=== PATIENT | male | born 1985 | race Caucasian/White ===

== ENCOUNTER 2018-03-28 14:13 | Inpatient (IN) | payer BC, OTHER ==
[~2018-03-28] VITALS: Ht 170.2 cm; Wt 72.6 kg
--- NOTE | 2018-03-28 14:45 | NUR ---
PRE-ASSESSMENT: Pre-Assessment done at intake office, client is A/O x4, he presents with anxious mood, agitated, hyperverbal, restless, and flushed face. Client is wearing clean clothes, he appears nourished. Client avoids eye contact, T 97.9 , RR 18, HR 93, BP 149/88 spO2 @ 95% on RA, no pain. He is fully ambulatory. He denies any allergies; he denies any withdrawal-induced seizure, no withdrawal induced delirium, no withdrawal induced cardia complications, no hx of overdose or blackouts. PMH: Anxiety (2006), Depression (2009), athlete's foot (2018). Denies any past surgical hx. Client denies any suicidal/homicidal ideation at this time and reports no hx of of SI/HI or involuntary psych hospitalization (5150). Medications taken at home Omeprazole 20mg PO QD terbinafine 250mg Tab PO HS Cymbalta 30mg PO daily Prescribed Xanax 1mg PO daily Substance history "First time used at 17 y/o at social events, then little by little the amount of alcohol was increasing, for the last two months, client consumes Alcohol (vodka, whiskey, tequila) and 6 beer (12-oz cans) of [employer]." Last used the day of admission around 070 in the amount of 370mL of whiskey. "I was prescribed Xanax 1mg 11 years ago for my anxiety, I never take more than 1 mg and some weeks I only take it 5 days, because the alcohol helps me relax, so I don't need the Xanax on those days, but I take it either every day or minimum 5 x a week." Client repots taking Xanax 1 mg PO 03/25/18. Protocol regarding vitals Q4H, UDS, blood work, and controlled substances discuss with client, he verbalized understanding. PCP: Vickey Stover MD
--- NOTE | 2018-03-28 15:17 | NUR ---
Admissions Note 38 year old male admitted to [facility] for withdrawal from alcohol and prescribed Alprazolam. Client stated, "I am here for alcohol, either I stop drinking or I will because of it." Client is oriented to unit, educated about protocols and how to work TV and call light in his room. Weight: 160 pounds. Height: 5'7" Client appears anxious, strong alcohol breath. Bilateral lung clear on auscultation, abdomen soft, non-tender, no edema noted. Client presents with moderate intoxication. Client has steady gait. Client has NKDA, regular diet, full code ordered. He declines PNA vaccine, stating, "I am not going to get pneumonia" He gives verbal consent for HIV. Client states that he lives alone. Client describes symptoms when not consuming alcohol. "I can not function, I'm irritable, agitated, I get headaches, stomach cramps, shaking, colds, I feel like I'm going crazy." Client said, "I was going crazy last night, I was hitting my head on the wall, crying and screaming really loud, then I call my mom and she help me realize that I'm not the same person I was before and now I want to be the good, fun kaden who does not need alcohol to function." When asked what are his plans after completing detox, he stated, "I just want to go home, see a therapist and go on with my life." Client reports when asked abot his longest period of sobriety, "I am not sure I do that some times, but can never be sober for more than 2 days and it is hell."Client reports when asked about his treatment history, "This is my first admission and I hope is the last one in my life." client stated, "I have depression and can't handle it, plus I am pretty sad about losing my grandma two months ago and my brother 5 years ago, time does not help me heal, but alcohol helps some." Dr Cavazos notified of client's admission. UDS not collected yet. All safety measures instituted. Seizure precaution. Call light within reach. Will continue to monitor.
[2018-03-28] MEDS ORDERED: OMEP20CA10 PO (15:24)
[2018-03-28] MEDS ORDERED: TERB250T52 PO (15:25)
[2018-03-28] MEDS ORDERED: MAG HYDROX/AL HYDROX/SIMETH 30 ML LIQUID UDC PO PRN (15:45)
[2018-03-28] MEDS ORDERED: diphenhydrAMINE 50 MG CAPSULE PO PRN (15:45)
[2018-03-28] MEDS ORDERED: MAGNESIUM HYDROXIDE 30 ML LIQUID UDC PO PRN (15:45)
[2018-03-28] MEDS ORDERED: LORAZEPAM 1 MG TABLET PO PRN ×2 (15:45)
[2018-03-28] MEDS ORDERED: ONDANSETRON 4 MG/2 ML VIAL IM PRN (15:45)
[2018-03-28] MEDS ORDERED: MIRALAX 17 GM POWD.PACK PO PRN (15:45)
[2018-03-28] MEDS ORDERED: LOPERAMIDE HCL 2 MG CAPSULE PO PRN ×2 (15:45)
[2018-03-28] MEDS ORDERED: LORAZEPAM 2 MG/1 ML VIAL IM PRN (15:45)
[2018-03-28] MEDS ORDERED: THIAMINE HCL 200 MG/2 ML VIAL IM ONE (15:45)
[2018-03-28] MEDS ORDERED: ONDANSETRON HCL 4 MG TABLET PO PRN (15:45)
[2018-03-28 16:22] VITALS: BP 138/95
[2018-03-28] MEDS: IBUPROFEN 600 MG TABLET PO PRN ×2 (17:10→23:07)
[2018-03-28] MEDS: ACETAMINOPHEN 325 MG TABLET PO PRN (17:10)
[2018-03-28] MEDS: CLONIDINE HCL 0.1 MG TABLET PO PRN (17:10)
--- NOTE | 2018-03-28 17:10 | NUR ---
PRN Clonidine 0.1mg PO, Tylenol 650mg PO, Motrin 600mg PO for anxiety, agitation and LOJA 9/10. Call light within reach.
[2018-03-28 17:12] LABS: BASOPHILS % (AUTO) 0.5 % (0.0-2.0); EOSINOPHILS % (AUTO) 0.5 % (0.0-7.0); HEMATOCRIT 43.6 % (36.7-47.1); HEMOGLOBIN 14.5 g/dL (12.5-16.3); LYMPHOCYTES % (AUTO) 49.8 % (20.5-51.5); MEAN CORPUSCULAR HEMOGLOBIN 26.7 uug (23.8-33.4); MEAN CORPUSCULAR HGB CONC 33 g/dL (32.5-36.3); MONOCYTES # (AUTO) 0.3 K/uL (2.0-10.0); MONOCYTES % (AUTO) 6.9 % (0.0-11.0); NEUTROPHILS # (AUTO) 1.7 K/uL (1.8-8.9); NEUTROPHILS % (AUTO) 42.3 % (38.5-71.5); PLATELET COUNT (AUTO) 274 K/uL (152-348); RED BLOOD CELL COUNT(AUTO) 5.45 MIL/uL (4.06-5.63); WHITE BLOOD COUNT (AUTO) 3.9 K/uL (3.6-10.2)
[2018-03-28 17:27] LABS: BILIRUBIN,TOTAL 0.4 mg/dL (0.2-1.0); CREATININE 1.1 mg/dL (0.6-1.3); MAGNESIUM 1.7 mg/dL (1.8-2.4)
[2018-03-28 18:01] LABS: *AMPHETAMINE, URINE NEGATIVE (NEGATIVE); *BARBITURATE, URINE NEGATIVE (NEGATIVE); *CANNABINOID, URINE NEGATIVE (NEGATIVE); *COCCAINE, URINE NEGATIVE (NEGATIVE); *OPIATE, URINE NEGATIVE (NEGATIVE); *PHENCYCLIDINE SCREEN,URINE NEGATIVE (NEGATIVE)
--- NOTE | 2018-03-28 18:10 | NUR ---
Reassess PRN Clonidine 0.1mg, Tylenol 650mg, Motrin 600mg, client reports an increase in his anxiety and agitation and no relief from his LOJA 04/08. Call light within reach. CN notified.
--- NOTE | 2018-03-28 18:51 | NUR ---
PRN Zofran 4mg PO administered for nausea, no emesis. Call light within reach.
[2018-03-28] MEDS ORDERED: DIAZEPAM 10 MG TABLET PO PRN (19:00)
[2018-03-28] MEDS ORDERED: DIAZEPAM 5 MG TABLET PO PRN (19:00)
--- NOTE | 2018-03-28 19:29 | NUR ---
END OF SHIFT Endorse client to incoming nurse, client is in room, a/o x 4. Client is admitted to [facility] for alcohol withdrawal and prescribed alprazolam. Client states, "I can not take Ativan, I took one tab one day and I was going crazy, so no I will not take Ativan." MD notified. PRN medications administered and noted per protocol. PRN Zofran 4mg PO for nausea to be reassess by incoming nurse. Adequate PO fluid intake 2700 mL, void x 1. Call light within reach.
--- NOTE | 2018-03-28 19:30 | NUR ---
Start of shift note Received report from day shift nurse. Pt is a 33 yo male, A+Ox4, presenting to [facility] for medically supervised ETOH/Benzo withdrawal. Pt noted with anxiety, restlessness, agitation, and irritability. Pt has HX of depression and anxiety which will be monitored during shift. Pt is on PRN Valium until further evaluation from MD. Respirations even and unlabored. Will continue to monitor.
--- NOTE | 2018-03-28 19:36 | NUR ---
PRN Valium 5mg Pt noted with CIWA: 8. Pt noted with fine tremors, anxiety, agitation, sweat on brow, and headache. Pt given PRN Valium 5mg and tolerated well. Will reassess within 1 HR. Will continue to monitor.
[2018-03-28 20:12] VITALS: BP 130/91
--- NOTE | 2018-03-28 20:12 | NUR ---
PRN Valium 5mg Reassessment and CIWA Assessment Medication effective. Pt expresses a reduction of anxiety but an increase in headache to 6/10. Pt advised that he received a dose of Motrin 600mg @1700 and pt stated that he would wait a little longer before taking any additional medication for headache. No s/s of ASE noted at this time. CIWA: 12. Pt noted with fine tremors, sweat on brow, anxiety, agitation, and headache. Respirations even and unlabored. Will continue to monitor.
[2018-03-28] MEDS ORDERED: MAGNESIUM OXIDE 400 MG TABLET PO ONE (21:00)
[2018-03-28] MEDS ORDERED: PANTOPRAZOLE SODIUM 40 MG TABLET.DR PO SCH ×2 (22:30→22:42)
[2018-03-28] MEDS: DIAZEPAM 10 MG TABLET PO PRN (22:30)
--- NOTE | 2018-03-28 22:30 | NUR ---
PRN Benadryl and Valium 10mg Pt noted with CIWA: 12 and c/o inability to sleep. Pt noted with fine tremors, anxiety, agitation, sweat on brow, and headache. PRN Benadryl and Valium 10mg given and tolerated well. Will reassess within 1 HR. Will continue to monitor.
[2018-03-28] MEDS ORDERED: PANTOPRAZOLE SODIUM 40 MG TABLET.DR PO ONE (23:00)
--- NOTE | 2018-03-28 23:07 | NUR ---
PRN Motrin Pt c/o headache 03/08 and requested for PRN Motrin. Medication given and tolerated well. Will reassess within 1 HR. Will continue to monitor.
--- NOTE | 2018-03-28 23:20 | NUR ---
PRN Benadryl and Valium 10mg Reassessment Medications effective. Pt expresses reduction of anxiety. Pt is resting well in bed. No s/s of ASE noted at this time. CIWA: 9. Pt noted with sweat on brow, fine tremors, anxiety, headache, and agitation. Respirations even and unlabored. Will continue to monitor.
--- NOTE | 2018-03-28 23:55 | NUR ---
PRN Motrin Reassessment Medication effective. Pt expresses reduction in headache to 5/10. No s/s of ASE noted at this time. Respirations even and unlabored. Will continue to monitor.
[2018-03-29 00:28] VITALS: BP 124/84
[2018-03-29 04:01] VITALS: BP 127/96
[2018-03-29] MEDS: DIAZEPAM 10 MG TABLET PO PRN (04:03)
--- NOTE | 2018-03-29 04:03 | NUR ---
CIWA Assessment and PRN Valium 10mg CIWA: 11. Pt noted with anxiety, agitation, fine tremors, sweat on brow, and headache. PRN Valium 10mg given and tolerated well. Will reassess within 1 HR. Will continue to monitor.
--- NOTE | 2018-03-29 04:32 | NUR ---
PRN Valium 10mg Reassessment Medication effective. Pt expresses reduction of anxiety. CIWA: 8. Pt noted with sweat on brow, anxiety, agitation, fine tremors, and mild headache. Respirations even and unlabored. Will continue to monitor.
--- NOTE | 2018-03-29 06:59 | NUR ---
End of shift note Pt was continuously noted with restlessness, anxiety, headache, and agitation. Pt remained in room for majority of shift except to get food from kitchen. Pt remained cooperative and compliant with all aspects of treatment. Pt was given PRN Valium 5mg @1936, PRN Benadryl and Valium 10mg @2230, PRN Motrin @2307, and PRN Valium 10mg @0401. Pt is on PRN Valium until further evaluation from MD, tolerated well. Pt slept for a total of 7 HRS. Last CIWA: 8 @0450. Respirations even and unlabored. Will endorse to day shift nurse.
--- NOTE | 2018-03-29 07:09 | NUR ---
WA 16 Client is in bed, he continues to present with anxiety, agitation, irritability, flushed face, nausea, abdominal, clammy skin, tremors, and difficulty concentrating noted. Client reports nausea, stomach cramps, sweats, chills, and fatigue. Valium 10mg PO administered. Encourage client to increase PO fluid intake as tolerated to facilitate detox. Call light within reach. Addendum: 03/29/18 at 1721 by POPEYE NEGRETE RN wrong time, should be [id number]
--- NOTE | 2018-03-29 07:30 | NUR ---
START OF SHIFT Endorse rcvd from ongoing nurse, client is in his room, pacing, he said, "I feel like, I'm going crazy, can you just give me more Valium so I can go to sleep."Client made aware of PRN Valium Q4H, he received a Valium 10mg dose @ 0403. offered other PRN medications for anxiety, but client refused. T 98, RR 18, P 77, BP 132/89, spO2 @ 99% pain 0/10. Last CIWA 8 @ 0450. PRN Valium 5mg PO, Valium 10mg PO @ 1030, 0403, Motrin 600mg PO for LOJA, Benadryl 50mg PO for insomnia, client slept 7 hrs. Seizure precautions in place. Bed in lowest/locked position. Call light within reach.
[2018-03-29 08:11] VITALS: BP 143/101
[2018-03-29] MEDS: FOLIC ACID 1 MG TABLET PO SCH (08:14)
[2018-03-29] MEDS: THIAMINE HCL 100 MG TABLET PO SCH (08:14)
[2018-03-29] MEDS: MULTIVITAMINS,THERAPEUTIC TABLET PO SCH (08:14)
--- NOTE | 2018-03-29 08:15 | NUR ---
PPD Test administered on L forearm.
--- NOTE | 2018-03-29 08:15 | NUR ---
CIWA 23 & PRN Valium 20mg PO Client appears disheveled, dark [place] under eyes, presents with anxiety, irritability, skin moist, flushed face, gross tremors, congested nose, watery eyes, emotional volatility, increased BP 143/101, and difficult concentrating. Client reports nausea, stomach cramps, sweats, a sense of panic, and fatigue. Client is almost in tears and states, "I don't know how I'm going to do this I'm freaking out, I just want to get out of here and drink something." PRN Valium 20mg PO administered. Encourage client to verbalized feelings of despair, support offered. Encourage client to increase PO fluid as tolerated to facilitate detox. Call light within reach.
[2018-03-29] MEDS ORDERED: TUBERCULIN,PURIF.PROT.DERIV. 5 TU/0.1 ML TEST ID ONE (09:00)
--- NOTE | 2018-03-29 09:15 | NUR ---
Reassess PRN Valium 20mg, client reports feeling less anxious, but still has that feeling of hypervigilance, like he has constantly monitor people around him, nausea decreased a little, he has poor appetite, gross tremors, sweats, restless legs, and difficulty concentrating. Client is a/o to name, place, time, and situation. CIWA 16. Call light within reach.
[2018-03-29] MEDS ORDERED: 5 DAY TAPER VALIUM-SERENITY PROTOCOL PO PRN (11:30)
[2018-03-29 12:45] VITALS: BP 134/99
[2018-03-29] MEDS: CLONIDINE HCL 0.1 MG TABLET PO PRN ×2 (12:45→21:20)
[2018-03-29] MEDS: DIAZEPAM 10 MG TABLET PO SCH ×3 (12:45→21:20)
[2018-03-29] MEDS: IBUPROFEN 600 MG TABLET PO PRN ×2 (12:45→20:00)
--- NOTE | 2018-03-29 12:45 | NUR ---
CIWA 19 & PRN Clonidine 0.1mg PO administered for anxiety, agitation. Client is pacing in his room, continuously running hands over his face and hair, he reports LOJA 5/10 frontal area & throbbing, he reports no appetite, nausea, tremors, sweats, irritability, and restless legs. Schedule Valium 10mg PO administered. Offered chicken soup and saltine crackers. Encourage Po fluids as tolerated. Call light within reach.
--- NOTE | 2018-03-29 13:42 | NUR ---
Therapist prompted client to attend twice daily group therapy sessions.
--- NOTE | 2018-03-29 13:45 | NUR ---
Reassess PRN Clonidine 0.1mg, client appears less anxious, he is able to sit in bed and watch TV, he stated, "I feel a little bit better, but my mind can't stop all this thoughts at once and make me restless." Will continue to monitor. Call light within reach.
[2018-03-29 16:45] VITALS: BP 113/75
[2018-03-29] MEDS: PANTOPRAZOLE SODIUM 40 MG TABLET.DR PO SCH (17:09)
--- NOTE | 2018-03-29 17:09 | NUR ---
CIWA 16 Client is in bed, he continues to present with anxiety, agitation, irritability, flushed face, nausea, abdominal, clammy skin, tremors, and difficulty concentrating noted. Client reports nausea, stomach cramps, sweats, chills, and fatigue. Valium 10mg PO administered. Encourage client to increase PO fluid intake as tolerated to facilitate detox. Call light within reach.
--- NOTE | 2018-03-29 19:25 | NUR ---
END OF SHIFT Endorse client to incoming nurse, client tends to isolate in his room, a/o x 4. Client monitored closely during shift, continues on Valium taper as ordered. During shift client presented with nausea, anxiety, agitation, poor appetite, stomach cramps, difficulty concentrating, avoidant gaze, and fatigue. Client's last CIWA 18 @ 1700. PRN medications administered and noted per protocol. Adequate PO fluid intake 1460mL, void x 3, stool x 1. Consumes 25-50% of meals. Call light within reach.
--- NOTE | 2018-03-29 19:47 | NUR ---
START OF SHIFT NOTE Rcvd report from outgoing nurse. Pt is 33 y/o male A/O to person, place, time, and purpose. Pt was admitted for medically supervised withdrawal from ETOH and Xanax. Pt is presenting w/ headaches, sweats, chills, body aches, anxiety, depressed and worried mood, and loss of appetite. PRN Valium and Clonidine were given for anxiety and elevated BP, noted effective. Last CIWA 18 @ 1600. Call light is within reach. Pt will continue to be monitored and needs met.
--- NOTE | 2018-03-29 20:02 | NUR ---
PRN Motrin Pt c/o headache 03/08 and requested for PRN Motrin. Medication given and tolerated well. Will reassess within 1 HR. Will continue to monitor.
[2018-03-29 20:33] VITALS: BP 139/99
--- NOTE | 2018-03-29 20:33 | NUR ---
CIWA ASSESSMENT CIWA 17. Pt is presenting w/ headaches, sweats, chills, body aches, anxiety, depressed and worried mood, and loss of appetite. V/S: T:98.6, P:90, RR:16, SPO2:96, BP:139/99.
--- NOTE | 2018-03-29 21:02 | NUR ---
PRN MOTRIN REASSESSMENT Pt states relief of pain. It is now 3/10 and tolerable. Will continue to monitor pt.
--- NOTE | 2018-03-29 21:20 | NUR ---
PRN CLONIDINE ADMINISTRATION Clonidine 0.1mg given for anxiety and sweats. CIWA 17. Will reassess pt in 1 hr.
--- NOTE | 2018-03-29 22:20 | NUR ---
PRN CLONIDINE REASSESSMENT Pt is in bed w/ his eyes closed. Pt's respirations are unlabored and even.
--- NOTE | 2018-03-30 00:06 | NUR ---
CIWA DEFERRED Pt is in bed w/ his eyes closed. Pt's respirations are unlabored and even.
--- NOTE | 2018-03-30 04:05 | NUR ---
CIWA DEFERRED. V/S REFUSED Pt is in bed w/ his eyes closed. Pt's respirations are unlabored and even.
--- NOTE | 2018-03-30 07:15 | NUR ---
END OF SHIFT NOTE Endorsed pt to oncoming nurse. Pt is 33 y/o male A/O to person, place, time, and purpose. Pt was admitted for medically supervised withdrawal from ETOH and Xanax. Pt is presenting w/ headaches, sweats, chills, body aches, anxiety, depressed and worried mood, and loss of appetite. PRN Motrin and Clonidine were given and noted effective. Pt denies any S/I or H/I. Pts fluid intake was 2000ml and he voided 3 times. Pt slept for 9 hrs. Last CIWA 17 @ 2000. Call light is within reach.
[2018-03-30 08:00] VITALS: BP 116/74
--- NOTE | 2018-03-30 08:00 | NUR ---
Start of Shift Notes/CIWA Assessment: Received patient in his room. Alert and oriented x 4. Verbally responsive. Appears flushed, diaphoretic, disheveled and unkempt. Encouraged maintenance of personal hygiene and space. Patient was seen to have gross tremors, and complains of 6/10 headache. CIWA 19. Patient is a 33 year old male admitted for ETOH/BZO withdrawal who was placed on a 5-day Valium taper as ordered. No adverse reactions noted. Per night report, patient was given PRN Motrin and Clonidine. Last CIWA 17. Slept for 9 hours. Educated patient on his current plan of care for the day and his medication regimen. Encouraged oral fluid intake and encouraged group participation to learn new skills to prevent relapse. All needs met and attended. Will continue to monitor closely.
[2018-03-30 08:11] LABS: HEPATITIS B SURFACE AG Negative (Negative)
[2018-03-30] MEDS: MULTIVITAMINS,THERAPEUTIC TABLET PO SCH (08:42)
[2018-03-30] MEDS: FOLIC ACID 1 MG TABLET PO SCH (08:42)
[2018-03-30] MEDS: DIAZEPAM 10 MG TABLET PO SCH ×3 (08:42→21:21)
[2018-03-30] MEDS: IBUPROFEN 600 MG TABLET PO PRN ×2 (08:42→21:24)
[2018-03-30] MEDS: THIAMINE HCL 100 MG TABLET PO SCH (08:42)
--- NOTE | 2018-03-30 08:42 | NUR ---
Motrin 600 mg PO given: Patient complained of 6/10 headache. Medicated patient with Motrin 600 mg PO as ordered after non-pharmacological interventions were ineffective. Will monitor for effectiveness.
--- NOTE | 2018-03-30 09:42 | NUR ---
Re-assessment: Motrin Patient verbalizes relief from headache. PRN Motrin was effective. He verbalizes his headache is now a 1 out of 10.
[2018-03-30 12:00] VITALS: BP 99/58
--- NOTE | 2018-03-30 12:00 | NUR ---
CIWA Assessment: CIWA 14, patient presented with gross tremors, diaphoresis, anxiety, agitation, gross tremors, headache and facial flushing. Support provided. Offered PRNs. Safety precautions in place. All needs met and attended. Will continue to monitor.
[2018-03-30 16:00] VITALS: BP 133/96
--- NOTE | 2018-03-30 16:00 | NUR ---
CIWA Assessment: CIWA 12, patient continues to present with withdrawal symptoms related to ETOH and BZO m/b gross tremors, anxiety, agitation, diaphoresis, fatigue and generalized discomfort. Offered PRNs. Support provided.
[2018-03-30] MEDS: PANTOPRAZOLE SODIUM 40 MG TABLET.DR PO SCH (17:00)
--- NOTE | 2018-03-30 19:02 | NUR ---
End of Shift Notes: Patient continues to be on 5-day Valium taper as ordered. No adverse reactions noted. Patient is on day 2 of his taper. VS monitored closely. No significant abnormalities noted. Withdrawal symptoms were closely monitored. Initial CIWA 19, patient presented with gross tremors, anxiety, agitation, headache, difficulty concentrating, diaphoresis, and facial flushing. Medicated patient with Motrin 600 mg PO at 0842 with help. Last CIWA 12. Patient verbalizes that Valium has been effective in reducing his withdrawal symptoms. Requires encouragement to attend group and activities due to episodes of self isolation. Appetite fair. All needs met and attended. Will continue to monitor closely.
--- NOTE | 2018-03-30 19:43 | NUR ---
START OF SHIFT NOTE Rcvd report from outgoing nurse. Pt is a 33 y/o male A/O to person, place, time, and purpose. Pt was admitted for medically supervised withdrawal from from ETOH and Xanax. Pt has been presenting w/ sweats, tremors, anxiety, and restlessness. Pt has been c/o agitated mood and headaches. PRN Motrin was given and noted effective by outgoing nurse. Pt has stated they want to be discharged on Sunday so they can go back to work on Sunday morning. aware. Last CIWA 12 @ 1600. Call light is within reach. Pt will continue to be monitored and needs met.
[2018-03-30 20:08] VITALS: BP 136/79
--- NOTE | 2018-03-30 20:10 | NUR ---
CIWA ASSESSMENT CIWA 13. Pt has been presenting w/ nausea w/ no emesis, sweats, restlessness, depressed mood, flat affect, and anxiety. Pt has been c/o headaches, body aches, and chills. V/S: T:98.5, P:80, RR:12, DPO2:99, BP:136/79.
[2018-03-30] MEDS: CLONIDINE HCL 0.1 MG TABLET PO PRN (21:21)
--- NOTE | 2018-03-30 21:21 | NUR ---
PRN CLONIDINE AND MOTRIN ADMINISTRATION Clonidine 0.1mg given for anxiety leading to insomnia. CIWA 13. Motrin 600mg given for body aches and pain 12/06. Will reassess pt in 1 hr.
--- NOTE | 2018-03-30 22:21 | NUR ---
PRN CLONIDINE AND MOTRIN REASSESSMENT Pt is in bed w/ his eyes closed. Pt's respirations are unlabored and even. Will continue to monitor pt.
--- NOTE | 2018-03-31 00:04 | NUR ---
CIWA DEFERRED. V/S REFUSED Pt is in bed w/ his eyes closed. Pt's respirations unlabored and even.
[2018-03-31] MEDS ORDERED: DICYCLOMINE HCL 20 MG TABLET PO ONE (03:45)
--- NOTE | 2018-03-31 03:45 | NUR ---
PRN BENTYL ADMINISTRATION Bentyl 20mg given for abdominal cramping. Pt c/o of 6/10 pain in his stomach after BM. Will reassess pt in 1 hr.
[2018-03-31 04:08] VITALS: BP 127/81
--- NOTE | 2018-03-31 04:11 | NUR ---
CIWA ASSESSMENT CIWA 11. Pt has been presenting w/ sweats, tremors, anxiety, and restlessness. Pt has been c/o agitated mood, headaches, and abdominal cramping. V/S: T:98.4, P:83, RR:16, SPO2:100, BP:127/81.
--- NOTE | 2018-03-31 04:45 | NUR ---
PRN MAGDA REASSESSMENT Pt is in bed w/ his eyes closed. Pt's respirations are unlabored and even.
--- NOTE | 2018-03-31 07:06 | NUR ---
END OF SHIFT NOTE Endorsed pt to oncoming nurse. Pt is a 33 y/o male A/O to person, place, time, and purpose. Pt was admitted for medically supervised withdrawal from from ETOH and Xanax. Pt has been presenting w/ sweats, tremors, anxiety, and restlessness. Pt has been c/o agitated mood and headaches. PRN Clonidine 0.1mg, Motrin 600mg, and Bentyl 20mg were given for sleep, body aches and head ache, and abdominal cramps, noted effective. Pts fluid intake was 600ml and he slept for 9hrs. Last CIWA 11 @ 0400. Call light is within reach.
--- NOTE | 2018-03-31 07:45 | NUR ---
Start of Sift Last CIWA 11 at 0400.Pt on a 5 day Valium taper. Pt in him room asleep, resp even and unlabored, vital stable. Verbally responsive to name and light touch. Pt is flushed, disheveled and unkempt, c/o sweats and chills, moderate anxiety, fine tremors and restlessness. Encouraged maintenance of personal hygiene and space. Pt slept for 9 hours. Encouraged Pt to participate in group activities, socialize with others and identify positive coping skills to maintain sobriety. Seizure and Fall precautions and all safety measures in place. Side rails up x2. Call light functioning and within reach. All needs attended and met. Will continue to assess for withdrawal symptoms.
[2018-03-31 08:00] VITALS: BP 98/63
--- NOTE | 2018-03-31 08:12 | NUR ---
CIWA 11- Pt is flushed, disheveled and unkempt, c/o sweats and chills, moderate anxiety, fine tremors and restlessness. He presents with flat affect, isolative, anhedonia, dysphoria, and depressed mood. Continue taper Valium protocol and administer PRN's as ordered.
[2018-03-31] MEDS: FOLIC ACID 1 MG TABLET PO SCH (09:10)
[2018-03-31] MEDS: THIAMINE HCL 100 MG TABLET PO SCH (09:10)
[2018-03-31] MEDS: MULTIVITAMINS,THERAPEUTIC TABLET PO SCH (09:10)
[2018-03-31] MEDS: IBUPROFEN 600 MG TABLET PO PRN ×2 (09:10→21:19)
[2018-03-31] MEDS: DIAZEPAM 5 MG TABLET PO SCH ×4 (09:10→21:59)
--- NOTE | 2018-03-31 09:12 | NUR ---
PRN Ibuprofen 600 mg PO for chronic back pain and headache /. Back pain aches adn throbbing. Headache dull.
--- NOTE | 2018-03-31 10:15 | NUR ---
Reassess Ibuprofen- Pt reports chronic back pain level now #3.
[2018-03-31 12:00] VITALS: BP 109/63
--- NOTE | 2018-03-31 12:07 | NUR ---
CIWA 11- Pt withdrawal symptoms include anxiety, malaise, chills/sweats, bilateral hand tremors, flushed face, disheveled, unshaven, unkempt, and restlessness. He still presents with anhedonia, dysphoria, flat affect, isolative, and depressed mood. Continue taper Valium protocol and administer PRN's as ordered.
--- NOTE | 2018-03-31 14:05 | NUR ---
Therapist prompted client to attend group therapy.
[2018-03-31 16:10] VITALS: BP 146/105
[2018-03-31] MEDS: PANTOPRAZOLE SODIUM 40 MG TABLET.DR PO SCH (17:07)
[2018-03-31] MEDS: CLONIDINE HCL 0.1 MG TABLET PO PRN ×2 (17:07→23:45)
--- NOTE | 2018-03-31 17:09 | NUR ---
PRN Clonidine 0.1 mg PO for BP 146/105 and anxiety.
[2018-03-31 18:10] VITALS: BP 140/98
--- NOTE | 2018-03-31 18:10 | NUR ---
Reassess Clonidine- BP 140/98. Pt reports he is still upset for not getting his phone call today. Will endorse to PM shift to recheck his BP.
--- NOTE | 2018-03-31 18:35 | NUR ---
Start of Sift Last at 1600. Pt on a 5 day Valium taper. Pt withdrawal symptoms are managed well on taper. Pt is flushed, disheveled and unkempt, c/o sweats and chills, moderate anxiety, fine tremors and restlessness. He did complete ADLs today and shower. Pt has flat affect and depressed mood. PRN given today; Ibuprofen. Encouraged Pt to participate in group activities, socialize with others and identify positive coping skills to maintain sobriety. Pt did participate in one group therapy sessions today. PO fluids 1651 ml, voids x4, BM x2. Seizure and Fall precautions and all safety measures in place. Side rails up x2. Call light functioning and within reach. All needs attended and met. Will continue to assess for withdrawal symptoms. Endorsed to PM shift. Addendum: 03/31/18 at 1837 by Robyn Rivera RN End of shift
--- NOTE | 2018-03-31 19:20 | NUR ---
START OF SHIFT Patient is a 33-year-old male admitted on 03/28/18 for ETOH and benzo withdrawal. Patient is currently on a 5-day Valium taper, tolerating well; today is day 3 of the taper. Patient's last CIWA was 11 per endorsement. Patient received PRN ibuprofen for headache which was noted to be effective. PRN clonidine was given at 1712 for elevated BP, which was not effective per report. Upon assessment, patient is alert and oriented x4, patient is talkative and cooperative. Patient complains of constant headache and difficulty sleeping. Patient is on fall and seizure precautions with no history of seizure. Safety measures in place, side rails up x2, bed locked in low position, call light within reach. Will continue to monitor.
[2018-03-31 20:00] VITALS: BP 135/101
--- NOTE | 2018-03-31 21:19 | NUR ---
PRN MOTRIN Patient reports headache 11/06. PRN Motrin 600mg given PO. Safety measures in place, side rails up x2, bed locked in low position, call light within reach. Will monitor for effectiveness.
--- NOTE | 2018-03-31 22:19 | NUR ---
PRN MOTRIN REASSESSMENT Patient reports that headache has subsided. PRN Motrin noted to be effective. Safety measures in place, side rails up x2, bed locked in low position, call light within reach. Will continue to monitor.
--- NOTE | 2018-03-31 23:45 | NUR ---
PRN CLONIDINE Patient reports some anxiety, agitation and restlessness, and states, "I feel like the clonidine helps me to fall asleep." PRN Clonidine 0.1mg given PO. Current BP 141/102, HR 83 at this time. Safety measures in place, side rails up x2, bed locked in low position, call light within reach. Will monitor for effectiveness.
[2018-04-01] VITALS (7 sets, daily range): BP systolic 96–158; BP diastolic 76–106
--- NOTE | 2018-04-01 00:45 | NUR ---
PRN CLONIDINE REASSESSMENT Patient is observed sleeping in bed with eyes closed, respirations even and unlabored. Unable to reassess effectiveness at this time. Safety measures in place, side rails up x2, bed locked in low position, call light within reach. Will continue to monitor.
--- NOTE | 2018-04-01 04:00 | NUR ---
CIWA DEFERRED CIWA deferred at this time due to patient sleeping; to be assessed and scored while patient is awake. Safety measures in place, side rails up x2, bed locked in low position, call light within reach. Will continue to monitor.
--- NOTE | 2018-04-01 06:00 | NUR ---
CIWA 11 Patient reports anxiety, stomach cramps, mild sweats, and mild headache. Current CIWA 11. Safety measures in place, side rails up x2, bed locked in low position, call light within reach. Will continue to monitor.
--- NOTE | 2018-04-01 07:25 | NUR ---
END OF SHIFT Patient is a 33-year-old male admitted on 03/28/18 for ETOH and benzo withdrawal. Patient is currently on a 5-day Valium taper, tolerating well; today will be day 4 of the taper. Patient's last CIWA was 11. Patient received PRN ibuprofen for headache which was noted to be effective. and PRN clonidine for anxiety and agitation. PRN Clonidine noted to be effective. Patient slept for 6 hours, total intake of 1,298mL, void x3, stool x0. Patient is on fall and seizure precautions with no history of seizure. Safety measures in place, side rails up x2, bed locked in low position, call light within reach. Will endorse to day shift.
[2018-04-01 07:38] LABS: BILIRUBIN,TOTAL 0.6 mg/dL (0.2-1.0); CREATININE 0.9 mg/dL (0.6-1.3); POTASSIUM 3.8 mmol/L (3.5-5.1); TOTAL PROTEIN, SERUM 7.1 g/dL (6.4-8.2)
[2018-04-01 07:45] LABS: BILIRUBIN,DIRECT 0.1 mg/dL (0.0-0.2); BILIRUBIN,TOTAL 0.6 mg/dL (0.2-1.0); TOTAL PROTEIN, SERUM 7.2 g/dL (6.4-8.2)
--- NOTE | 2018-04-01 08:00 | NUR ---
START OF SHIFT Pt is a 33 yr old male, AA&ox4. pt was admitted on 03/28/18 for ETOH withdrawal and is on 5 day Valium taper as ordered. Received report from museum curator nurse. Pt received Clonidine PRN and Motrin PRN during the night. Pt slept for 6 hrs. Last CIWA score was 11. Pt is currently in bed resting with respirations even and unlabored. Pt is c/o anxiety, agitation and sweats. Skin is intact,warm and moist to touch. Pt was encouraged increase fluid intake for hydration. CIWA score this morning is 8. Safety precautions observed. Call light is within reach. Will continue to monitor.
[2018-04-01] MEDS: DIAZEPAM 5 MG TABLET PO SCH ×3 (09:41→20:54)
[2018-04-01] MEDS: FOLIC ACID 1 MG TABLET PO SCH (09:41)
[2018-04-01] MEDS: MULTIVITAMINS,THERAPEUTIC TABLET PO SCH (09:41)
[2018-04-01] MEDS: THIAMINE HCL 100 MG TABLET PO SCH (09:41)
--- NOTE | 2018-04-01 12:00 | NUR ---
CIWA ASSESSMENT Pt is observed with anxiety m/b difficulty staying still. Pt is c/o sweats and chills. CIWA score was 8.
--- NOTE | 2018-04-01 12:42 | NUR ---
Therapist prompted client to attend group therapy sessions.
[2018-04-01] MEDS: IBUPROFEN 600 MG TABLET PO PRN (15:17)
--- NOTE | 2018-04-01 15:22 | NUR ---
PRN GIVEN Pt c/o headache 01/06. Facial grimacing is observed. Motrin 600mg PO PRN was given as ordered. Encouraged increase fluid intake for hydration. Will continue to monitor.
--- NOTE | 2018-04-01 16:22 | NUR ---
PRN RE-ASSESSMENT Motrin 600mg PO PRN was effective. Pt denies any headache. Will continue to monitor.
[2018-04-01] MEDS: PANTOPRAZOLE SODIUM 40 MG TABLET.DR PO SCH (17:42)
[2018-04-01] MEDS: CLONIDINE HCL 0.1 MG TABLET PO PRN ×2 (17:43→23:46)
--- NOTE | 2018-04-01 17:48 | NUR ---
PRN GIVEN Pt is noted with increase BP of 158/106. Clonidine 0.1mg PO PRN was given as ordered. Encouraged increase fluid intake. Will continue to monitor.
--- NOTE | 2018-04-01 19:10 | NUR ---
END OF SHIFT Pt is a 33 yr old male, AA&Ox4. Pt was admitted on 03/28/18 for ETOH withdrawal and is on 5 day Valium taper as ordered. Medication benton well. Pt has been cooperative with medication regimen and plan of care. Pt was c/o anxiety, agitation, sweats, restlessness, headache and chills. Pt received Motrin 600jmg PO PRN for headache and Clonidine 0.1mg PO PRN for increase BP of 158/106. Medication was effective. Last BP was 142/91 and Pt denies any headache. Pt was encouraged increase fluid intake for hydration. Last CIWA score was 12 at 1600. Safety precautions observed. Call light is within reach. Endorsed to shift coordinator nurse to continue with care.
--- NOTE | 2018-04-01 19:30 | NUR ---
Start of shift note Received report from day shift nurse. Patient is a 33 year old male admitted for ETOH withdrawal. Patient is on 5 day Valium taper. Patient was given PRN Clonidine for BP-158/106, effective . BP went down to 142/91. PRN Motrin given for headache. Last CIWA 12. Patient alert and oriented x 4. Patient presents with flat affect, unshaven, anxiety, intermittent perspiration,restlessness and headache. Safety measures in place. Call light in reach. Will continue to monitor Addendum: 04/02/18 at 0605 by HAYDEN NIXON LVN Duplicate charting
--- NOTE | 2018-04-01 19:30 | NUR ---
Start of shift note Received report from day shift nurse. Patient is a 33 year old male admitted for ETOH withdrawal. Patient is on 5 day Valium taper. Patient was given PRN Clonidine for BP-158/106, effective . BP went down to 142/91. PRN Motrin given for headache. Last CIWA 12. Patient alert and oriented x 4. Patient presents with flat affect, unshaven, anxiety, intermittent perspiration, restlessness and headache. Safety measures in place. Call light in reach. Will continue to monitor
--- NOTE | 2018-04-01 20:00 | NUR ---
CIWA assessment Patient presents with intermittent sweating, anxiety , restlessness and headache. CIWA 11
[2018-04-01] MEDS: ACETAMINOPHEN 325 MG TABLET PO PRN (20:57)
--- NOTE | 2018-04-01 20:57 | NUR ---
PRN Tylenol administration Patient c/o headache. Will monitor for effectiveness
--- NOTE | 2018-04-01 21:57 | NUR ---
PRN Tylenol re-assessment Patient states Tylenol helpful. Pain is lessened.
--- NOTE | 2018-04-01 23:46 | NUR ---
PRN Clonidine administration Patient anxious and restless. Will monitor for effectiveness
[2018-04-02] VITALS: BP 138/86
--- NOTE | 2018-04-02 | NUR ---
CIWA assessment Patient anxious, restless, irritable, sweating and headache. CIWA 10.
--- NOTE | 2018-04-02 00:46 | NUR ---
PRN Clonidine re-assessment Patient lying in bed with eyes closed. Respiration even and unlabored. Will continue to monitor.
--- NOTE | 2018-04-02 04:00 | NUR ---
CIWA deferred Patient lying in bed with eyes closed. Respiration even and unlabored. VS refused. Will continue to monitor.
--- NOTE | 2018-04-02 07:22 | NUR ---
End of shift note Patient slept 5 hours. Fluid intake 855 ml. Voided x 1 . No BM . Monitored patient throughout shift. Patient presented with flat affect, unshaven, anxiety , restlessness and headache. Scheduled taper given as ordered, tolerated well and no adverse reaction noted. Patient was given PRN Tylenol for headache, effective. AT 2346, patient was anxious and restless. PRN Clonidine given. Safety measures in place. Call light in reach. Will continue to monitor. Last CIWA .
--- NOTE | 2018-04-02 07:30 | NUR ---
START OF SHIFT Pt is a 33 yr old male, AA&ox4. pt was admitted on 03/28/18 for ETOH withdrawal and is on 5 day Valium taper as ordered. Received report from cement truck loader nurse. Pt received Clonidine PRN and Tylenol PRN during the night. Medication was effective. Pt slept for 6 hrs. Last CIWA score was 10 at 0000. Pt states of sleeping well through the night but woke up at 0500 due to a nightmare. Pt is observed anxious m/b difficulty staying stay. Pt is c/o headache, muscle aches, sweats and chills. Pt was encouraged increase fluid intake for hydration. CIWA score this morning is 7. Safety precautions observed. Call light is within reach. Will continue to monitor.
[2018-04-02 08:00] VITALS: BP 116/82
[2018-04-02] MEDS: MULTIVITAMINS,THERAPEUTIC TABLET PO SCH (09:48)
[2018-04-02] MEDS: FOLIC ACID 1 MG TABLET PO SCH (09:48)
[2018-04-02] MEDS: DIAZEPAM 5 MG TABLET PO SCH ×2 (09:48→21:39)
[2018-04-02] MEDS: THIAMINE HCL 100 MG TABLET PO SCH (09:49)
[2018-04-02] MEDS: IBUPROFEN 600 MG TABLET PO PRN ×2 (09:53→21:39)
--- NOTE | 2018-04-02 09:53 | NUR ---
PRN GIVEN Pt is c/o generalized body aches 5/10. Motrin 600mg PO PRN was given as ordered. Encoruaged increase fluid intake. will continue to monitor.
--- NOTE | 2018-04-02 10:53 | NUR ---
PRN RE-ASSESSMENT Motrin PO PRN was effective. pt denies any any pain or discomfort. will continue to monitor.
[2018-04-02] MEDS ORDERED: BUPRENORPHINE HCL 2 MG TAB.SUBL SL SCH (11:30)
[2018-04-02 12:00] VITALS: BP 145/79
--- NOTE | 2018-04-02 12:00 | NUR ---
CIWA ASSESSMENT Pt was observed with anxiety m/b difficulty staying still. Pt is c/o sweats and chills but states he is able to tolerate. CIWA score is 6. Will continue to monitor.
[2018-04-02 16:00] VITALS: BP 139/89
[2018-04-02] MEDS: PANTOPRAZOLE SODIUM 40 MG TABLET.DR PO SCH (18:43)
--- NOTE | 2018-04-02 19:14 | NUR ---
END OF SHIFT Pt is a 33 yr old male, AA&Ox4. Pt was admitted on 03/28/18 for ETOH withdrawal and is on 5 day Valium taper as ordered. Medication benton well. Pt has been cooperative with medication regimen and plan of care. Pt was observed attending group therapy. Pt was c/o anxiety, agitation, sweats, restlessness and body aches. Pt received Motrin 600 mg PO PRN for body aches. Medication was effective. Pt was encouraged increase fluid intake for hydration. Last CIWA score was 4 at 1600. Safety precautions observed. Call light is within reach. Endorsed to night time nanny nurse to continue with care.
--- NOTE | 2018-04-02 19:45 | NUR ---
Start of Shift Note Received a 33 y/o male px, admitted for medically supervised withdrawal from ETOH and Alprazolam. Px is placed on 5 day Valium taper started 03/29/2018. Px is tolerating it. Last reported CIWA 4 by AM shift nurse. During the rounds at 1945, px is awake on bed sitting on the edge of the bed. Px appears anxious. He is unshaven. Px stated that his anxiety is 2/10 and he has H/A of 7/10. Bed on the lowest position, side rails up 2x and call light within reach. Well continue to monitor.
[2018-04-02 20:00] VITALS: BP 132/86
--- NOTE | 2018-04-02 20:00 | NUR ---
CIWA 12 On assessment, Px appears anxious. Px stated that his anxiety is 2/10 and he has H/A of 7/10. will continue to monitor
[2018-04-02] MEDS: CLONIDINE HCL 0.1 MG TABLET PO PRN (21:40)
--- NOTE | 2018-04-02 22:40 | NUR ---
CIWA 9 reassessment Px still appears anxious. Px stated that his anxiety is 2/10 and he has H/A of 3/10.will continue to monitor
[2018-04-03] VITALS (7 sets, daily range): BP systolic 121–139; BP diastolic 78–94
--- NOTE | 2018-04-03 | NUR ---
CIWA 9 Px is still awake but ready to sleep. He appears anxious. Px stated that his anxiety is still mild and his H/A drops to 3/10. will continue to monitor
--- NOTE | 2018-04-03 04:00 | NUR ---
CIWA deferred CIWA deferred due to the px is asleep, to assess if the px is awake per doctor's order. Will continue to monitor.
--- NOTE | 2018-04-03 07:05 | NUR ---
End of Shift Note During the shift at 2140, px received Motrin 600 mg PO for H/A of 7/10 and Clonidine 0.1 mg PO for anxiety . They were effective. Oral intake of 1,200 ml, voided 3x, No BM. Last CIWA 9. Px slept for 6.5 hours. At 0630, px is asleep on bed in right side lying position. Bed on the lowest position, side rails up 2x and call light within reach. Well continue to monitor. Px endorsed to AM shift nurse.
[2018-04-03] MEDS: FOLIC ACID 1 MG TABLET PO SCH (08:08)
[2018-04-03] MEDS: MULTIVITAMINS,THERAPEUTIC TABLET PO SCH (08:08)
[2018-04-03] MEDS: THIAMINE HCL 100 MG TABLET PO SCH (08:08)
--- NOTE | 2018-04-03 08:20 | NUR ---
START OF SHIFT: Received Pt A/O X 4. He presents with anxious mood and congruent affect. He reports some intermittent anxiety. He states he is attending groups and interacts with peers. Valium taper completed. CIWA 8. Encouraged increased fluids to assist in facilitating detox process. Will continue to monitor and offer support.
[2018-04-03] MEDS ORDERED: MULT-24 PO (13:40)
[2018-04-03] MEDS ORDERED: CLON0.1T14 PO (13:40)
[2018-04-03] MEDS ORDERED: BUPRENORPHINE HCL 2 MG TAB.SUBL SL SCH (15:00)
[2018-04-03] MEDS: PANTOPRAZOLE SODIUM 40 MG TABLET.DR PO SCH (18:10)
[2018-04-03] MEDS: IBUPROFEN 600 MG TABLET PO PRN ×3 (18:10→23:40)
--- NOTE | 2018-04-03 18:15 | NUR ---
PRN Motrin PO given for reported H/A 6/10 on pain scale. Will monitor effectiveness.
--- NOTE | 2018-04-03 18:45 | NUR ---
END OF SHIFT: Pt completed Valium taper for ETOH withdrawal and is scheduled for discharge in am tomorrow. Pt verbalizes enthusiasm toward sobriety. He is going home and states he will attend AA meetings. He reported intermittent anxiety and a H/A and PRN Motrin was given and effective. Pt was compliant with groups. Will pass shift report to oncoming night nurse.
--- NOTE | 2018-04-03 20:00 | NUR ---
CIWA 6 On assessment, px appears anxious. Px stated that his anxiety is 3/10. No complaints at the moment. will continue to monitor
--- NOTE | 2018-04-03 20:00 | NUR ---
Start of Shift Note Received a 33 y/o male px, admitted for medically supervised withdrawal from ETOH and Alprazolam. Px completed a 5 day Valium taper started 03/29/2018. Px tolerated it. He is to be D/C tomorrow, 04/04/2018. Last reported CIWA 5 by AM shift nurse. During the rounds at 2000, px is awake standing inside his room. Px appears anxious. He is unshaven. Px stated that his anxiety is 3/10. Bed on the lowest position, side rails up 2x and call light within reach. Well continue to monitor.
[2018-04-03] MEDS: CLONIDINE HCL 0.1 MG TABLET PO PRN (23:37)
--- NOTE | 2018-04-03 23:37 | NUR ---
PRN Clonidine and Motrin Px received Clonidine 0.1 mg PO for anxiety and Motrin 600 mg PO for H/A of 6/10. To reassess after an hour.
[2018-04-04] VITALS: BP 130/99
--- NOTE | 2018-04-04 | NUR ---
CIWA 12 On assessment, px is still awake on bed. Px stated that his anxiety is 3/10 and he has H/A of 6/10. He was given Clonidine 0.1 mg PO and Motrin 600 mg PO awhile ago. will continue to monitor
--- NOTE | 2018-04-04 00:40 | NUR ---
Reassessment of H/A and anxiety Px is about to sleep at this moment. He stated that his anxiety is better and H/A is gone. will continue to monitor
[2018-04-04 04:00] VITALS: BP 125/88
--- NOTE | 2018-04-04 04:00 | NUR ---
CIWA deferred CIWA deferred due to the px is asleep, to assess if the px is awake per doctor's order. Will continue to monitor.
--- NOTE | 2018-04-04 07:05 | NUR ---
End of Shift Note Px is to be D/C today, 04/04/2018. During the shift at 2337, px received Clonidine 0.1 mg PO for anxiety and Motrin 600 mg PO for H/A of 01/06. They were effective. Oral intake of 500 ml, voided 2x, No BM. Last CIWA 12. Px slept for 5 hours. At 0630, px is asleep on bed in right side lying position. Bed on the lowest position, side rails up 2x and call light within reach. Well continue to monitor. Px endorsed to AM shift nurse.
--- NOTE | 2018-04-04 07:30 | NUR ---
Start of Shift Note Pt. is a 22 y/o female admitted for the medically managed withdrawal from Opiates (Heroin), Benzodiazepines (Xanax), and ETOH (Vodka). Pt. was placed on a 5 day valium and 5 day Subutex taper to manage her withdrawal symptoms. Today is her last day of both taper medications. Endorse from pervious shift pt. presented with body aches, anxiety and nausea. Last COWS 9 and CIWA 10. Pt. received PRN Robaxin, Baclofen, and Vistaril to manage her symptoms. Received pt. in room. Pt.s laying in bed with her eyes close and linen cluttered about. Pt.s room is messy with personal belongings and food containers cluttered about. No signs of distress noted. Safety measures in place. Will continue to monitor pt.s behavior for safety.
--- NOTE | 2018-04-04 07:30 | NUR ---
Start of Shift Pt. is a 33 y/o male admitted for the medically managed withdrawal from ETOH (Vodka, Whiskey, Tequila) and Benzodiazepines (Xanax). Pt. was placed on a 5 day valium taper which he completed yesterday (04/03/2018). Endorse from previous shift pt. presented with anxiety, restlessness and a headache. PRN Clonidine, and Motrin given to help manage withdrawal symptoms. Received pt. in room. Pt. up and gathering his belongings. Pt. states Im ready to go. Educated pt. on discharge plan and medication regiment. Pt. verbalize understanding. Safety measures in place. Will continue to monitor pt. behavior for safety.
[2018-04-04 08:00] VITALS: BP 140/98
[2018-04-04] MEDS: MULTIVITAMINS,THERAPEUTIC TABLET PO SCH (08:30)
[2018-04-04] MEDS: THIAMINE HCL 100 MG TABLET PO SCH (08:30)
[2018-04-04] MEDS: FOLIC ACID 1 MG TABLET PO SCH (08:30)
--- NOTE | 2018-04-04 09:47 | NUR ---
Discharge Note Pt. is being discharged at this time per MD order with Rx. Pt. is A/O x 4 with no acute distress noted. Pt. denies SI, HI, VH, and AH. Pt. is being discharge Home. Educated pt. on s/s to report and when to seek medical attention. Pt. verbalize understanding. Discharge paper work, belongings, and home medications all placed in blue and black discharge back. Last CIWA of 5 at 0800. V/S WNL. Pt. escorted of unit at this time by staff.
[2018-04-05] MEDS ORDERED: BUPRENORPHINE HCL 2 MG TAB.SUBL SL SCH (09:00)
== END 2018-04-04 09:47 | disposition home or self-care (01) | DRG 895 ==
LOC: SRC 14:13 → EDBD 14:13
PROVIDERS: ADMIT Family Medicine Addiction Medicine; ATTEND Family Medicine Addiction Medicine
PROC: HZ2ZZZZ Detoxification Services for Substance Abuse Treatment (ICD-10-PCS; principal; 2018-03-28)
PROC: HZ31ZZZ Individual Counseling for Substance Abuse Treatment, Behavioral (ICD-10-PCS; 2018-03-29)
PROC: HZ41ZZZ Group Counseling for Substance Abuse Treatment, Behavioral (ICD-10-PCS; 2018-03-29)
DX: F10.230 Alcohol dependence with withdrawal, uncomplicated (principal); F33.1 Major depressive disorder, recurrent, moderate; F10.220 Alcohol dependence with intoxication, uncomplicated; Y90.9 Presence of alcohol in blood, level not specified; F41.9 Anxiety disorder, unspecified; K21.9 Gastro-esophageal reflux disease without esophagitis; R74.0 Nonspecific elevation of levels of transaminase and lactic acid dehydrogenase [LDH]; Z81.1 Family history of alcohol abuse and dependence; G89.29 Other chronic pain; M54.5 Low back pain
CPT/HCPCS: 36415; 70030-TC; 80307; 80346; 83690; 83735; 85025; 86580; 86592; 86705; 86803; 87340; 87806; A4663; G0480; Q0162; Q0163